=== PATIENT | male | born 1975 | race Caucasian/White ===

== ENCOUNTER 2023-10-11 11:44 | Day surgery (SDC) | payer SELFPAY ==
[~2023-10-11] VITALS: Ht 177.8 cm; Wt 99.0 kg
[~2023-10-11 11:44] MED LIST: LR 1,000 ML IV SCH; Ondansetron 4 MG/2 ML VIAL IV PRN
[2023-10-11] MEDS ORDERED: PROTONIX 40MG T40 MG PO (12:37)
[2023-10-11] MEDS ORDERED: ZYRTEC ALLERGY10 MG PO (12:38)
[2023-10-11] MEDS ORDERED: FLONASEALLERGY NS (12:38)
[2023-10-11] MEDS ORDERED: NATURAL IRON65 MG (12:39)
[2023-10-11] MEDS ORDERED: Lidocaine PF 2% (20 MG/ML) 5 ML VIAL ONE (12:45)
[2023-10-11 13:34] VITALS: BP 102/53; PULSE 78; TEMP 97.5
--- NOTE | 2023-10-11 13:42 | NUR ---
1216 Patient ambulatory to [facility] with a steady gait, breathing even and unlabored. Patient is alert and oriented, accompanied by his . Patient reports he is still having gonzalez colored liquid stool that is not transparent and has some formed matter. Dr. Benites was notified and gave a verbal order to give a soapsuds enema. Patient tolerated enema well, grayish liquid came out. Will proceed with scheduled EGD and colonoscopy. Consents reviewed and signed by patient. IV established. LR infusing via gravity at KVO. Call light in reach. Warm blanket offered and declined.
[2023-10-11 14:25] VITALS: BP 107/68; PULSE 87; TEMP 97.4
[2023-10-11 14:30] VITALS: BP 110/54; PULSE 82
[2023-10-11 14:45] VITALS: BP 92/57; PULSE 80
--- NOTE | 2023-10-11 15:10 | NUR ---
1420- DR. BROWN IN ROOM SPEAKING WITH PATIENT. 1425- PATIENT RETURNS TO [facility] VIA CART. PT AWAKE AND ALERT. RESPIRATIONS UNLABORED. AMBULATED TO RECLINER CHAIR WITH 2:1 SBA. PT DENIES NAUSEA OR ABDOMINAL PAIN. HOOKED UP TO MONITOR AND VS OBTAINED. CALL LIGHT AT SIDE AND PRESENT PRESENT. 1430- PATIENT TOLERATING APPLE JUICE AND MUFFIN WITHOUT NAUSEA OR DIFFICULTY SWALLOWING. 1448- D/C INSTRUCTIONS REVIEWED WITH PATIENT. PT VERBALIZED UNDERSTANDING AND A COPY OF INSTRUCTIONS PROVIDED IN D/C FOLDER. 1500- PATIENT DRESSES SELF. 1510- PATIENT DISCHARGED FROM UNIT VIA W/C TO A PERSONAL VEHICLE. PT LEFT HOSPITAL IN STABLE CONDITION.
== END 2023-10-11 15:10 | disposition home or self-care (01) ==
LOC: SDCO 11:44
DX: K21.00 Gastro-esophageal reflux disease with esophagitis, without bleeding (principal); K92.1 Melena; D50.0 Iron deficiency anemia secondary to blood loss (chronic); K44.9 Diaphragmatic hernia without obstruction or gangrene; Z80.0 Family history of malignant neoplasm of digestive organs; Z79.899 Other long term (current) drug therapy
CPT/HCPCS: J2704; J7120